=== PATIENT | female | born 1950 | race Caucasian/White ===

== ENCOUNTER 2019-12-29 14:48 | Emergency (ER) | payer OTHER, MEDICAID ==
[~2019-12-29] VITALS: Ht 157.5 cm; Wt 68.9 kg
[2019-12-29 15:14] VITALS: BP 165/88
--- NOTE | 2019-12-29 15:48 | NUR ---
C/O COUGH AND CONGESTION X 3 DAYS--- ADMITS RECENT IN FAMILY (NEPHEW FOUND ), PT AWAKE , ALERT , AFIBRILE , AMBULATORY WITH STEADY GAIT, SCE , CBS , NEGATIVE TONSILLAR CONGESTION. HX--DENIES RX---NONE
--- NOTE | 2019-12-29 15:48 | NUR ---
DR DA SILVA AT [facility] EVALUATING PT.
[2019-12-29] MEDS ORDERED: ALBUTEROL 0.083% 2.5 MG/3 ML NEBU INH ONE (15:50)
[2019-12-29] MEDS ORDERED: IPRATROPIUM 0.02% 0.5 MG/2.5 ML NEBU INH ONE (15:50)
[2019-12-29] MEDS ORDERED: predniSONE 20 MG TAB PO ONE (15:50)
--- NOTE | 2019-12-29 15:56 | NUR ---
XRAY AT BEDSIDE.
--- NOTE | 2019-12-29 16:05 | NUR ---
ADMINISTERED [facility] ORDERED ENCOURAGED PATIENT FOR INTERMITTENT DEEP BREATHING AND COUGH DURING THERAPY
--- NOTE | 2019-12-29 16:32 | NUR ---
PT COMFORTABLE ON BED ,SIDE RAILS UP ,BED LOCK . DONE WITH BREATHING TREATMENT.
--- NOTE | 2019-12-29 16:36 | NUR ---
DR DA SILVA AT BEDSIDE REEVALUATING PT.
[2019-12-29 16:43] VITALS: BP 165/88
--- NOTE | 2019-12-29 16:44 | NUR ---
Patient discharged with v/s stable. Written and verbal after care instructions given and explained regarding bronchitis. Patient alert, oriented and verbalized understanding of instructions. Ambulatory with steady gait. All questions addressed prior to discharge. ID band removed. Patient advised to follow up with PMD. Rx of prednisone and albuterol inhaler given. Patient educated on indication of medication including possible reaction and side effects. Opportunity to ask questions provided and answered.
== END 2019-12-29 16:44 | disposition home or self-care (01) ==
LOC: MED 14:48
DX: J40 Bronchitis, not specified as acute or chronic (principal); J98.01 Acute bronchospasm; R03.0 Elevated blood-pressure reading, without diagnosis of hypertension
CPT/HCPCS: 71045; 94640; 99283; J7512; J7613; J7644; Q0092

== ENCOUNTER 2020-11-28 08:29 | Emergency (ER) | payer OTHER, MEDICAID ==
[~2020-11-28] VITALS: Ht 157.5 cm; Wt 61.2 kg
[2020-11-28 08:44] VITALS: BP 205/97
[2020-11-28] MEDS ORDERED: CLONIDINE HYDROCHLORIDE 0.1 MG TAB PO ONE (09:00)
[2020-11-28] MEDS ORDERED: KETOROLAC 30 MG/ML VIAL IM ONE (09:05)
[2020-11-28 10:10] VITALS: BP 181/87
== END 2020-11-28 10:11 | disposition home or self-care (01) ==
LOC: MED 08:29
DX: M19.09 Primary osteoarthritis, other specified site (principal); M79.644 Pain in right finger(s); I10 Essential (primary) hypertension
CPT/HCPCS: 29125; 96372; 99283; J1885